=== PATIENT | female | born 1940 | race Caucasian/White ===

== ENCOUNTER → 2020-05-24 10:52 | Outpatient (CLI) | payer MEDICARE, SELFPAY ==
--- NOTE | 2020-05-23 18:13 | HP.PCM_ITS ---
History and Physical Date of Admission: 05/24/20 Angelica Weiss 1940 ? ? REFERRING PHYSICIAN: Jasen Cote MD ? CHIEF COMPLAINT: No chief complaint on file. ? HPI: The patient is a 79 year old female presents with abnormal left breast mammograms. She denies palpable breast masses Denies nipple discharge Denies previous breast biopsies No breast or ovarian cancer known in immediate family ? Mammograms 03/30/2020 There are a grouped heterogeneous calcifications in the left breast at 1 o'clock middle depth. No other significant masses or calcifications are seen in the breast. IMPRESSION: SUSPICIOUS FINDING - BIOPSY SHOULD BE CONSIDERED The grouped heterogeneous calcifications in the left breast are suspicious of malignancy. ?A stereotactic biopsy is recommended. ? ? PAST MEDICAL HISTORY ? Arthritis ? ? Asthma ? ? Carotid stenosis ? ? High cholesterol ? ? Hyperglycemia ? ? Hypertension ? ? Hypothyroid ? ? Primary osteoarthritis of right knee 09/24/2017 ? PAST SURGICAL HISTORY ? ANESTHESIA TOTAL KNEE REPLACEMENT Right 09/2017 ? CAROTID STENT Left ~ 2009 ? CHOLECYSTECTOMY ? ? ? FOOT SURGERY HX Left 2004 ? revision in 2007 ? PAST SURGICAL HISTORY OF ? 1960s ? removal of goiter, thyroid still intact ? REVISE MEDIAN N/CARPAL TUNNEL SURG Bilateral ? ? S $ KNEE PARTIAL Left 2004 ? TONSILLECTOMY HX ? Childhood ? ? Current Outpatient Medications ? diazePAM (VALIUM) 5 mg tablet Take 1 tablet by mouth available for use prior to procedure for 1 day. ? hydroCHLOROthiazide (HYDRODIURIL, ESIDRIX) 12.5 mg tablet Take 1 tablet by mouth once daily. ? levothyroxine (SYNTHROID) 75 mcg tablet Take 1 tablet by mouth daily before breakfast. ? omeprazole (PRILOSEC) 20 mg capsule Take 1 capsule by mouth once daily. ? montelukast (SINGULAIR) 10 mg tablet Take 1 tablet by mouth daily at bedtime. ? simvastatin (ZOCOR) 20 mg tablet Take 1 tablet by mouth daily at bedtime. ? ibuprofen (ADVIL ORAL) Take by mouth. ? benzonatate (TESSALON PERLE) 100 mg capsule Take 1 capsule by mouth three times daily as needed. ? potassium chloride (K-TAB) 10 mEq tablet Take 1 tablet by mouth daily with breakfast. ? cyclobenzaprine (FLEXERIL) 5 mg tablet Take 1 tablet by mouth three times daily as needed. ? aspirin, enteric coated (ASPIRIN, ENTERIC COATED) 81 mg EC tablet Take 81 mg by mouth once daily. ? fluticasone propionate (FLONASE NASAL) Use in the nose. ? ibuprofen (MOTRIN) 600 mg tablet Take 1 tablet by mouth every 8 hours as needed for Pain. (Patient not taking: ? cholecalciferol (VITAMIN D3) 1,000 unit tab tablet Take 1 tablet by mouth once daily. ? ? ALLERGIES: Tramadol and Vicodin [Hydrocodone-Acetaminophen] ? PERSONAL HISTORY: Social History ?Tobacco Use ? Smoking status: Former Smoker ? ? Packs/day: 3.50 ? ? Years: 22.00 ? ? Pack years: 77.00 ? ? Types: Cigarettes ? ? Quit date: 01/17/1982 ? ? Years since quittin.2 ? Smokeless tobacco: Never Used Substance Use Topics ? Alcohol use: No ? Drug use: No ? FAMILY HISTORY ? Asthma Mother ? ? Ischemic Heart Disease Mother ? ? Cancer Father ? ? Bone ? Kidney Disease Father ? ? The review of systems data was entered by the nurse and reviewed by me ? Nursing Notes: Joshua Flores LPN REVIEW OF SYSTEMS: General: The patient denies fatigue, denies weight loss, denies weight gain, denies feeling hot, and denies feelings of cold. Eyes: The patient denies glaucoma, NOTES eye injury/surgery, wears glasses or contacts. Ear/Nose/Throat: The patient denies allergies, denies hayfever, denies ear infections, and denies bloody noses. Cardiovascular: The patient denies chest pain, denies heart disease, NOTES high blood pressure,denies cardiac stent, denies prior heart attack, denies irregular heart beat, NOTES high cholesterol, denies poor circulation, denies heart failure, other cardiac issues, denies claudication, denies cold feet, denies peripheral arterial stent. Respiratory: has some shortness of breath with exertion, denies tuberculosis, denies pneumonia, denies frequent cough, denies pulmonary embolism, and denies coughing up blood. Gastrointestinal: denies abdominal pain, Colonoscopy >10 y, but had stool g uaiac test which was negative,denies difficulty swallowing, NOTES acid reflux, denies ulcers, denies vomiting, denies jaundice/hepatitis, NOTES gallbladder problems, denies black or tarry stools, denies hemorrhoids, denies bleeding from rectum, denies diverticulitis, denies constipation, denies diarrhea, denies loss of stool control, and denies hernias. Kidney/Bladder: The patient denies kidney stones, denies urine infections, and denies bloody urine. Skin: The patient denies a history of skin cancer, denies bleeding/changing moles, and denies a history of skin rash. Neurologic: The patient denies a history of epilepsy/convulsions, denies headaches, denies head/spinal injuries, and denies stroke/TIA. Psychiatric: The patient denies psychiatric medications, denies de pression, and denies voices, denies substance abuse. Endocrine: The patient NOTES thyroid disorders, denies diabetes, and denies hormonal problems. Hematologic: The patient denies a history of bruising, denies bleeding, and denies anemia, denies blood clots. Infections: The patient NOTES a history of measles and mumps, denies rheumatic fever, and denies sexually transmitted diseases. Musculoskeletal: has right hip pain, has knee pain, has back pain ? spinal stenosis, walks with aid of walker due to this, has some hand weakness due to arthritis Obstetrical ? menarche onset at age 15, , first at age 23, BCP use in 20s for 2 y, denies breast feeding, menopause mid 40s, HRT use < 6 m When was patient's last Mammogram screening? 03/28 Last Colonoscopy: N/a Joshua Flores LPN ? ? PHYSICAL EXAMINATION: General: The patient is 79 year old female, well nourished, well hydrated in no acute distress. The patient is oriented to time, place, and person. VITALS: Ht: 5?1? fluctuates 203-215# Temp 98.5F BP 138/73 HR 82 RR 16 Head ? Normocephalic. EOM intact with sclera clear and no icterus noted. Wearing glasses. Mouth with mucus membranes moist. Neck - supple with no jugular venous distention noted. Trachea is midline. No carotid bruits noted. No thyroid enlargement or thyroid nodules detected. No masses noted. Chest/breast ? no asymmetry of breasts noted, no suspicious skin lesions noted, no nipple discharge and both nipples everted, no breast masses noted Lungs ? clear to auscultation. Normal breath sounds. No rales/rhonchi/wheezing noted. No labored breathing noted, such as retractions. No cough heard. Heart ? normal S1 and S2 auscultated. No rubs/clicks/murmurs noted. Regular rate. Abdomen ? soft and benign. Normal bowel sounds No abdominal bruits noted. Difficult to determine if any masses or organomegaly due to body habitus. Extremities ? no calf tenderness noted. No pitting edema noted. Skin ? normal skin integrity. Lymph ? no cervical adenopathy detected, no supraclavicular adenopathy detected, no axillary adenopathy detected Neurological ? gait normal, no focal deficits noted Psych ? calm and appropriate RADIOLOGIC STUDIES: As Noted ? IMPRESSION: abnormal left breast radiographs ? PLAN: I have discussed the above with the patient and her daughter who is present with her. I have offered left breast stereotactic biopsy. I have explained the procedure to the patient. I have counseled the patient as to the risks of the procedure, including but not limited to: infection, bleeding, injury to any blood vessels/nerves, scar tissue, wound infections, complications of anesthesia, etc. ? the patient understands. The patient wishes to proceed. I have told patient to hold aspirin at least three days prior to the procedure to avoid bleeding complications The patient relates that she as anxiety with any type of confinement, I will therefore prescribe for her valium which she can take prior to the procedure. I have answered all questions to the patient?s satisfaction and the patient has no further questions. . Diagnoses: (R92.8) Abnormal mammogram (primary encounter diagnosis) (Z79.82) Aspirin long-term use (F41.9) Anxiety Return to Clinic: The patient is instructed to follow-up with me after the procedure.
--- NOTE | 2020-05-24 | BRBX_PTH ---
PATIENT: TERI TRIPP LOC: [facility] U#:[id number] AGE/SX: 85/F ROOM: RE05/24/[address]: Dr. Tri Arrieta MD : 1940 BED: DIS: SPEC #: [id number] RECD: 05/24/20 13:20 STATUS: OFELIA HARRIET #: [id number] PITA: 05/24/20 00:[address]: Tri Arrieta DEPT: SURGICAL PATHOLOGY RECD BY: Reg Winters ENTERED: 05/24/20 13:20 SP TYPE: BREAST BX OTHR DR: KIRILL Dixon Tissues: Left breast, NOS Procedures: Surgery Specimen Level IV HEADER OPERATION: Left stereotactic breast biopsy PRE-OP DIAGNOSIS: Left breast 1 o'clock middle depth microcalcifications TISSUE SUBMITTED: Left breast core tissue ISCHEMIC TIME: 2 minutes FIXATION TIME: 7.5 hours MICROSCOPIC DIAGNOSIS Left breast, stereotactic needle core biopsy: Benign hyalinized and calcified nodules with focal cystic change. Mild fibrocystic change. Focal intraductal hyperplasia without atypia. No evidence of malignancy. AM:yinka 05/25/20 MICROSCOPIC DESCRIPTION Slides are reviewed. GROSS DESCRIPTION Received in fixative is one container labeled with the patient name and designated left breast. The specimen consists of multiple elongated fragments of denise-yellow fibroadipose tissue that in aggregate measure 6 x 3 x 0.3 cm. The entire specimen is submitted in three cassettes. / SJ:yinka 05/24/20 TC:5 CPT: 77911
--- NOTE | 2020-05-24 12:10 | OP.PCM_ITS ---
Report of Operation Date of Procedure: 05/24/20 Pre-Operative Diagnosis: abnormal calcifications of left breast mammograms Post-Operative Diagnosis: same Surgery/Procedure Performed:: left stereotactic breast biopsy Description of Surgical Findings:: abnormal calcifications of left breast mammograms Type of Anesthesia:: Local - 1% xylocaine Specimen's removed: left breast tissue Estimated Blood Loss (mL): < 2 ml Description of Procedure: After informed consent was given, the patient was brought into the Breast Biopsy suite. Appropriate time out protocol was followed. The patient was placed in the prone position on the stereotactic biopsy table. The patient?s left breast was then placed in the opening at the head of the biopsy table. A pick and shovel worker compression mammogram was then obtained in the lateral view. The suspicious radiological lesion was thus identified. Stereo pictures of the lesion were then taken for XYZ coordinates. The Mammotome biopsy stylus was then positioned where it would be entering into the patient?s breast. The skin at this site was then cleansed with a surgical skin preparation. The skin and subcutaneous tissues at this site were then infiltrated with 1% xylocaine. A small skin incision was made with an 11 blade scalpel. The biopsy stylus was then positioned into the patient?s breast at the proper coordinates of depth. Using the Mammotome vacuum-assist device, several core samples of breast tissue were obtained. A specimen mammogram was the obtained. It revealed that the abnormal calcifications were within the specimen. I reviewed this personally and concluded that the tissue sampling was adequate. A hemostatic marker clip was then placed into the biopsy cavity and a pick and shovel worker film revealed that it was properly deployed. The patient was then placed in the supine position and pressure was applied to the breast until no active bleeding was noted. A nylon suture was placed to reapproximate the skin. A unilateral mammogram in the CC and MLO view were then taken which revealed that the marker clip was in the same area as the previous suspicious lesion. The patient tolerated the procedure well and was discharged from the Breast Biopsy suite in good condition. - Complications none noted
== END ==
PROVIDERS: PCP Physician Assistant; Referring Provider Surgery; Visit Provider Surgery
DX: N62 Hypertrophy of breast (principal); R92.1 Mammographic calcification found on diagnostic imaging of breast; E03.9 Hypothyroidism, unspecified; E04.9 Nontoxic goiter, unspecified; E78.00 Pure hypercholesterolemia, unspecified; F41.9 Anxiety disorder, unspecified; I10 Essential (primary) hypertension; J45.909 Unspecified asthma, uncomplicated; M17.11 Unilateral primary osteoarthritis, right knee; Z79.82 Long term (current) use of aspirin; Z79.899 Other long term (current) drug therapy; Z82.49 Family history of ischemic heart disease and other diseases of the circulatory system; Z84.1 Family history of disorders of kidney and ureter; Z87.891 Personal history of nicotine dependence; Z88.5 Allergy status to narcotic agent; Z88.8 Allergy status to other drugs, medicaments and biological substances; Z90.49 Acquired absence of other specified parts of digestive tract; Z96.651 Presence of right artificial knee joint
CPT/HCPCS: 19081; 88305; J7050; A4648